=== PATIENT | male | born 1980 | race Caucasian/White ===

== ENCOUNTER 2018-08-23 12:48 | Emergency (ER) | payer OTHER ==
[~2018-08-23] VITALS: Ht 175.3 cm; Wt 77.1 kg
[~2018-08-23 12:48] MED LIST: AMOXICILLIN500 M1 PO; FLEXERIL PO; IBUPROFEN 800800 M1 PO; NOHOMEMEDICATIONS; NORCO 5-325 TA1 EACH PO; PERCOCET 5-3251 EACH PO; TRAMADOL 50 MG50 MG PO
[2018-08-23 12:57] VITALS: BP 135/88
[2018-08-23] MEDS ORDERED: CLEOCIN HCL300 MG PO (13:04)
== END 2018-08-23 13:10 | disposition left against medical advice (07) ==
LOC: M.ERS 12:48
DX: K61.1 Rectal abscess (principal); F41.9 Anxiety disorder, unspecified; F17.200 Nicotine dependence, unspecified, uncomplicated; Z88.2 Allergy status to sulfonamides; Z88.6 Allergy status to analgesic agent

== ENCOUNTER 2018-08-25 11:38 | Emergency (ER) | payer OTHER ==
[~2018-08-25] VITALS: Ht 175.3 cm; Wt 77.1 kg
[~2018-08-25 11:38] MED LIST changes: +CLEOCIN HCL300 MG PO
[2018-08-25 13:14] LABS: ABSOLUTE EOSINOPHILS 0.1 thou/uL (0.0-0.7); ABSOLUTE LYMPHOCYTES 2.4 thou/uL (0.8-5.3); ABSOLUTE MONOCYTES 0.8 thou/uL (0.0-1.2); ABSOLUTE NEUTROPHILS 7.9 thou/uL (1.6-8.1); BASOPHILS 0.3 %; HEMATOCRIT 44.4 % (42.0-52.0); HEMOGLOBIN 14.9 gm/dL (14.0-18.0); LYMPHOCYTES 21.6 %; MCH 31.3 pg (26.0-34.0); MCHC 33.5 g/dL (28.0-37.0); MCV 93.5 fL (80.0-100.0); MONOCYTES 6.7 %; MPV 7.4 fl. (7.2-11.1); NUCLEATED RBCS 0 /100WBC; PLATELET COUNT* 340 thou/uL (150-400); POLYS 70.4 %; RBC 4.76 mil/uL (4.50-6.00); RDW-CV 13.9 % (10.5-14.5); WBC 11.3 thou/uL (4.0-11.0)
[2018-08-25 13:24] LABS: CALCIUM 8.5 mg/dL (8.5-10.1); CREATININE 0.7 mg/dL (0.6-1.3); POTASSIUM 4.3 mmol/L (3.5-5.1)
[2018-08-25 13:29] LABS: ALBUMIN 3.2 g/dL (3.4-5.0); TOTAL BILIRUBIN 0.1 mg/dL (<0.1-1.0); TOTAL PROTEIN 7.5 g/dL (6.4-8.2)
[2018-08-25] MEDS ORDERED: ACETAMINOPHEN-1 EAC1 PO (13:32)
[2018-08-25 13:51] VITALS: BP 119/75
== END 2018-08-25 13:52 | disposition home or self-care (01) ==
LOC: M.ERS 11:38
PROVIDERS: Physician Assistant
DX: L02.31 Cutaneous abscess of buttock (principal); F17.200 Nicotine dependence, unspecified, uncomplicated; F41.9 Anxiety disorder, unspecified; Z88.6 Allergy status to analgesic agent; Z88.2 Allergy status to sulfonamides

== ENCOUNTER 2019-03-04 21:32 | Emergency (ER) | payer OTHER ==
[~2019-03-04] VITALS: Ht 175.3 cm; Wt 79.8 kg
[~2019-03-04 21:32] MED LIST changes: +ACETAMINOPHEN-1 EAC1 PO
[2019-03-04 21:36] VITALS: BP 153/81
[2019-03-04] MEDS ORDERED: HYDROXYZINE HCL25 M2 PO (22:04)
[2019-03-04] MEDS ORDERED: MUPIROCIN15 GM TOP (22:05)
[2019-03-04] MEDS ORDERED: DOXYCYCLINE 10100 MG PO (22:05)
== END 2019-03-04 22:46 | disposition home or self-care (01) ==
LOC: M.ERS 21:32
DX: F41.9 Anxiety disorder, unspecified (principal); L73.9 Follicular disorder, unspecified; F17.210 Nicotine dependence, cigarettes, uncomplicated; Z88.2 Allergy status to sulfonamides; Z88.6 Allergy status to analgesic agent

== ENCOUNTER 2019-03-08 12:48 | Emergency (ER) | payer OTHER ==
[~2019-03-08] VITALS: Ht 175.3 cm; Wt 79.4 kg
[~2019-03-08 12:48] MED LIST changes: +DOXYCYCLINE 10100 MG PO; +HYDROXYZINE HCL25 M2 PO; +MUPIROCIN15 GM TOP
[2019-03-08] MEDS ORDERED: OMEPRAZOLE 20 M20 M1 PO (13:01)
[2019-03-08] MEDS ORDERED: XANAX1 MG PO (13:32)
[2019-03-08 13:54] VITALS: BP 130/87
== END 2019-03-08 13:54 | disposition home or self-care (01) ==
LOC: M.ERS 12:48
DX: F41.9 Anxiety disorder, unspecified (principal); F17.210 Nicotine dependence, cigarettes, uncomplicated; Z88.2 Allergy status to sulfonamides; Z88.8 Allergy status to other drugs, medicaments and biological substances

== ENCOUNTER 2019-08-14 07:20 | Emergency (ER) | payer OTHER ==
[~2019-08-14] VITALS: Ht 177.8 cm; Wt 79.4 kg
[~2019-08-14 07:20] MED LIST changes: +OMEPRAZOLE 20 M20 M1 PO; +XANAX1 MG PO
[2019-08-14] MEDS ORDERED: TYLENOL WITH CO1 TA1 PO (08:36)
[2019-08-14] MEDS ORDERED: IBUPROFEN 800800 MG PO (08:36)
[2019-08-14 09:04] VITALS: BP 133/92
== END 2019-08-14 09:05 | disposition home or self-care (01) ==
LOC: M.ERS 07:20
DX: S92.312A Displaced fracture of first metatarsal bone, left foot, initial encounter for closed fracture (principal); F17.210 Nicotine dependence, cigarettes, uncomplicated; Z88.2 Allergy status to sulfonamides; Z88.6 Allergy status to analgesic agent; Z88.8 Allergy status to other drugs, medicaments and biological substances; W18.39XA Other fall on same level, initial encounter; Y93.89 Activity, other specified; Y92.89 Other specified places as the place of occurrence of the external cause; Y99.8 Other external cause status

== ENCOUNTER 2020-01-28 09:17 | Emergency (ER) | payer OTHER ==
[~2020-01-28] VITALS: Ht 175.3 cm; Wt 81.7 kg
[~2020-01-28 09:17] MED LIST changes: +IBUPROFEN 800800 MG PO; +TYLENOL WITH CO1 TA1 PO
[2020-01-28 10:31] LABS: URINE BILIRUBIN NEGATIVE (Negative); URINE BLOOD NEGATIVE (Negative); URINE CLARITY CLEAR; URINE COLOR YELLOW; URINE GLUCOSE-RANDOM NEGATIVE (Negative); URINE KETONES NEGATIVE (Negative); URINE LEUKOCYTES NEGATIVE (Negative); URINE NITRITE NEGATIVE (Negative); URINE PROTEIN NEGATIVE (Negative); URINE SPECIFIC GRAVITY <= 1.005 (1.005-1.030); URINE UROBILINOGEN 0.2 E.U./dl (0.2-1.0)
[2020-01-28 10:39] LABS: AMP/METHAMP Negative (Negative); BARBITURATES Negative (Negative); BENZODIAZEPINES Negative (Negative); COCAINE Negative (Negative); METHADONE Negative (Negative); OPIATES Negative (Negative); PCP Negative (Negative); THC Negative (Negative)
[2020-01-28] MEDS ORDERED: XANAX 0.5 MG0.5 M1 PO (10:53)
[2020-01-28 11:04] VITALS: BP 124/72
== END 2020-01-28 11:05 | disposition home or self-care (01) ==
LOC: M.ERS 09:17
PROVIDERS: Personal Emergency Response Attendant
DX: F41.9 Anxiety disorder, unspecified (principal); F17.210 Nicotine dependence, cigarettes, uncomplicated; Z88.2 Allergy status to sulfonamides; Z88.6 Allergy status to analgesic agent; Z88.8 Allergy status to other drugs, medicaments and biological substances

== ENCOUNTER 2020-06-09 12:24 | Emergency (ER) | payer OTHER ==
[~2020-06-09] VITALS: Ht 177.8 cm; Wt 77.1 kg
[~2020-06-09 12:24] MED LIST changes: +XANAX 0.5 MG0.5 M1 PO
[2020-06-09] MEDS ORDERED: OMEPRAZOLE40 MG PO (12:38)
[2020-06-09] MEDS ORDERED: XANAX 0.5 MG0.5 M1 PO (13:36)
[2020-06-09 13:45] VITALS: BP 122/68
== END 2020-06-09 13:46 | disposition home or self-care (01) ==
LOC: M.ERS 12:24
DX: F41.9 Anxiety disorder, unspecified (principal); J30.9 Allergic rhinitis, unspecified; Z20.822 Contact with and (suspected) exposure to COVID-19; Z88.2 Allergy status to sulfonamides; Z88.6 Allergy status to analgesic agent; Z88.8 Allergy status to other drugs, medicaments and biological substances

== ENCOUNTER 2020-08-11 15:53 | Emergency (ER) | payer OTHER ==
[~2020-08-11] VITALS: Ht 175.3 cm; Wt 79.4 kg
[~2020-08-11 15:53] MED LIST changes: +OMEPRAZOLE40 MG PO
[2020-08-11] MEDS ORDERED: HYDROCODON-ACE1 EAC7 PO (16:19)
[2020-08-11] MEDS ORDERED: ANUSOL-HC25 MG RECTAL (16:19)
[2020-08-11] MEDS ORDERED: COLACE100 MG PO (16:19)
[2020-08-11] MEDS ORDERED: XANAX 0.5 MG0.5 MG PO (16:19)
[2020-08-11 16:20] VITALS: BP 145/75
== END 2020-08-11 16:20 | disposition home or self-care (01) ==
LOC: M.ERS 15:53
DX: K64.5 Perianal venous thrombosis (principal); F41.9 Anxiety disorder, unspecified; F17.210 Nicotine dependence, cigarettes, uncomplicated; Z88.6 Allergy status to analgesic agent; Z88.2 Allergy status to sulfonamides; Z88.8 Allergy status to other drugs, medicaments and biological substances

== ENCOUNTER 2020-09-17 14:52 | Emergency (ER) | payer OTHER ==
[~2020-09-17] VITALS: Ht 175.3 cm; Wt 77.6 kg
[~2020-09-17 14:52] MED LIST changes: +ANUSOL-HC25 MG RECTAL; +COLACE100 MG PO; +HYDROCODON-ACE1 EAC7 PO; +XANAX 0.5 MG0.5 MG PO
[2020-09-17] MEDS ORDERED: XANAX 0.5 MG0.5 M1 PO ×2 (15:30→15:38)
[2020-09-17] MEDS ORDERED: CLEOCIN HCL300 MG PO (15:30)
[2020-09-17 15:35] VITALS: BP 149/83
== END 2020-09-17 15:35 | disposition home or self-care (01) ==
LOC: M.ERS 14:52
DX: L73.2 Hidradenitis suppurativa (principal); F41.9 Anxiety disorder, unspecified; F17.210 Nicotine dependence, cigarettes, uncomplicated; Z88.6 Allergy status to analgesic agent; Z88.3 Allergy status to other anti-infective agents; Z79.899 Other long term (current) drug therapy

== ENCOUNTER 2020-12-17 02:11 | Emergency (ER) | payer OTHER ==
[~2020-12-17] VITALS: Ht 175.3 cm; Wt 74.8 kg
[2020-12-17 02:56] LABS: ABSOLUTE EOSINOPHILS 0.1 thou/uL (0.0-0.7); ABSOLUTE LYMPHOCYTES 2.2 thou/uL (0.8-5.3); ABSOLUTE MONOCYTES 0.6 thou/uL (0.0-1.2); ABSOLUTE NEUTROPHILS 3.6 thou/uL (1.6-8.1); BASOPHILS 0.6 %; EOSINOPHILS 1.9 %; HEMATOCRIT 49.7 % (42.0-52.0); HEMOGLOBIN 16.8 gm/dL (14.0-18.0); MCH 33.7 pg (26.0-34.0); MCHC 33.8 g/dL (28.0-37.0); MCV 99.6 fL (80.0-100.0); MONOCYTES 8.7 %; MPV 8.1 fl. (7.2-11.1); NUCLEATED RBCS 0 /100WBC; PLATELET COUNT* 176 thou/uL (150-400); POLYS 54.8 %; RBC 4.99 mil/uL (4.50-6.00); RDW-CV 14.2 % (10.5-14.5); WBC 6.6 thou/uL (4.0-11.0)
[2020-12-17 03:12] LABS: CALCIUM 9.1 mg/dL (8.5-10.1); CREATININE 0.7 mg/dL (0.6-1.3); POTASSIUM 4.1 mmol/L (3.5-5.1)
[2020-12-17 03:16] LABS: ALBUMIN 3.8 g/dL (3.4-5.0); MAGNESIUM 2.1 mg/dL (1.8-2.4); TOTAL BILIRUBIN 0.3 mg/dL (<0.1-1.0); TOTAL PROTEIN 8.5 g/dL (6.4-8.2)
[2020-12-17] MEDS ORDERED: PRILOSEC OTC20 MG PO (04:26)
[2020-12-17 04:29] VITALS: BP 132/91
--- NOTE | 2020-12-17 09:49 | EKG ---
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
== END 2020-12-17 04:29 | disposition home or self-care (01) ==
LOC: M.ERS 02:11
PROVIDERS: Emergency Medicine
DX: F10.129 Alcohol abuse with intoxication, unspecified (principal); Y90.8 Blood alcohol level of 240 mg/100 ml or more; R07.89 Other chest pain; K21.9 Gastro-esophageal reflux disease without esophagitis; F41.9 Anxiety disorder, unspecified; F17.210 Nicotine dependence, cigarettes, uncomplicated; Z88.2 Allergy status to sulfonamides; Z88.6 Allergy status to analgesic agent; Z88.1 Allergy status to other antibiotic agents; Z88.9 Allergy status to unspecified drugs, medicaments and biological substances

== ENCOUNTER 2021-04-13 07:49 | Emergency (ER) | payer OTHER ==
[~2021-04-13] VITALS: Ht 177.8 cm; Wt 77.1 kg
[~2021-04-13 07:49] MED LIST changes: +PRILOSEC OTC20 MG PO
[2021-04-13 09:36] VITALS: BP 126/90
[2021-04-13 09:44] LABS: CALCIUM 7.9 mg/dL (8.5-10.1); CREATININE 0.8 mg/dL (0.6-1.3); HEMATOCRIT 43.2 % (42.0-52.0); HEMOGLOBIN 14.4 gm/dL (14.0-18.0); MCH 33.2 pg (26.0-34.0); MCHC 33.3 g/dL (28.0-37.0); MCV 99.5 fL (80.0-100.0); MPV 7.2 fl. (7.2-11.1); NUCLEATED RBCS 0 /100WBC; PLATELET COUNT* 332 thou/uL (150-400); POTASSIUM 3.8 mmol/L (3.5-5.1); RBC 4.34 mil/uL (4.50-6.00); RDW-CV 14.2 % (10.5-14.5); WBC 6.2 thou/uL (4.0-11.0)
[2021-04-13 09:53] LABS: ALBUMIN 3.3 g/dL (3.4-5.0); MAGNESIUM 1.9 mg/dL (1.8-2.4); TOTAL BILIRUBIN 0.1 mg/dL (<0.1-1.0); TOTAL PROTEIN 7.2 g/dL (6.4-8.2)
[2021-04-13 11:33] LABS: ABSOLUTE EOSINOPHILS 0.2 thou/uL (0.0-0.7); ABSOLUTE LYMPHOCYTES 1.3 thou/uL (0.8-5.3); ABSOLUTE MONOCYTES 0.5 thou/uL (0.0-1.2); ABSOLUTE NEUTROPHILS 4.2 thou/uL (1.6-8.1); PLATELET ESTIMATE ADEQUATE
--- NOTE | 2021-04-13 12:34 | EKG ---
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1980 Requested By: Mark Yoder Order Number: [id number] MD: Colin Vargas Measurements Intervals [place] Rate: 83 P: 15 SC: 198 QRS: 41 QRSD: 89 T: 48 QT: 357 QTc: 420 Interpretive Statements Sinus rhythm Baseline wander in lead(s) V3 Compared to ECG 12/17/2020 02:18:18 No significant changes Electronically Signed On 04-13-2021 12:34:17 [employer] by Colin Vargas [email or web address] <ELECTRONICALLY SIGNED> By: Colin Vargas MD, [facility] 04/13/21 1234 8 0819 Colin Vargas MD, [facility] /EPI
== END 2021-04-13 09:36 | disposition left against medical advice (07) ==
LOC: M.ERS 07:49
PROVIDERS: Emergency Medicine Emergency Medical Services
DX: R00.2 Palpitations (principal); R07.89 Other chest pain; R06.02 Shortness of breath; F41.9 Anxiety disorder, unspecified; K21.9 Gastro-esophageal reflux disease without esophagitis; F17.210 Nicotine dependence, cigarettes, uncomplicated; Z88.8 Allergy status to other drugs, medicaments and biological substances; Z88.6 Allergy status to analgesic agent; Z88.2 Allergy status to sulfonamides; Z88.1 Allergy status to other antibiotic agents